=== PATIENT | male | born 1965 ===

== ENCOUNTER 2019-03-12 13:49 | Emergency (ER) | payer OTHER ==
[~2019-03-12] VITALS: Ht 175.3 cm; Wt 80.3 kg
[2019-03-12] MEDS ORDERED: LOSARTAN POTASS50 MG (14:21)
== END 2019-03-12 17:14 | disposition home or self-care (01) ==
LOC: ER 13:49
DX: R30.0 Dysuria (principal); R31.0 Gross hematuria